=== PATIENT | male | born 1990 | race Caucasian/White ===

== ENCOUNTER 2020-11-14 19:30 | Emergency (ER) | payer SELFPAY ==
[2020-11-14 19:53] VITALS: BP 150/93; PULSE 111; TEMP 97; BMI 22.8
== END 2020-11-14 20:44 | disposition home or self-care (01) ==
LOC: JER 19:30 → JERFT 19:30
DX: U07.1 COVID-19 (principal)
CPT/HCPCS: 87070; 87880; 99283-25; C9803; U0003

== ENCOUNTER 2021-04-28 17:44 | Emergency (ER) | payer SELFPAY ==
[2021-04-28 17:53] VITALS: BP 116/74; PULSE 88; TEMP 97.6; BMI 23.5
[2021-04-28 20:03] LABS: URINE APPEARANCE CLEAR; URINE BILIRUBIN NEGATIVE (NEGATIVE); URINE COLOR YELLOW; URINE GLUCOSE (UA) NEGATIVE (NEGATIVE); URINE KETONE NEGATIVE (NEGATIVE); URINE LEUK ESTERASE NEGATIVE (NEGATIVE); URINE NITRITE NEGATIVE (NEGATIVE); URINE PROTEIN NEGATIVE (NEGATIVE); URINE UROBILINOGEN 0.2 mg/dL (0.2-1.0)
[2021-04-28] MEDS ORDERED: KETOROLAC TROMETHAMINE 30 MG/1 ML VIAL IM ONE (20:18)
[2021-04-28] MEDS ORDERED: KETOROLAC TROMETHAMINE 30 MG/1 ML VIAL ONE (21:29)
== END 2021-04-28 21:35 | disposition home or self-care (01) ==
LOC: JER 17:44
PROC: 3E0233Z Introduction of Anti-inflammatory into Muscle, Percutaneous Approach (ICD-10-PCS; principal; 2021-04-28)
DX: M54.9 Dorsalgia, unspecified (principal)
CPT/HCPCS: 71046-TC-FY; 81003; 87086; 99284-25